=== PATIENT | male | born 1945 | race Caucasian/White ===

== ENCOUNTER 2020-09-07 11:17 | Inpatient (IN) ==
[~2020-09-07 11:17] MED LIST: Famotidine 20 MG/2 ML VIAL IVP ONE
[2020-09-07] MEDS ORDERED: CeFAZolin Syr 2,000MG/20 ML 2,000 MG/20 ML SYRINGE IVPB ONE (12:02)
[2020-09-07] MEDS ORDERED: Ringers Solution, Lactated 1,000 ML IVC SCH (12:15)
[2020-09-07] MEDS ORDERED: Pregabalin 50 MG CAPSULE PO ONE (12:16)
[2020-09-07] MEDS ORDERED: Acetaminophen IV 1,000 MG/100 ML BAG IVPB ONE (12:16)
[2020-09-07] MEDS ORDERED: 0.9 % Sodium Chloride 250 ML IVC SCH (12:45)
[2020-09-07] MEDS ORDERED: *HR* FentaNYL (PF) 100 MCG/2 ML VIAL ONE (13:36)
[2020-09-07] MEDS ORDERED: *HR* Propofol 200 MG/20 ML VIAL IVP ONE (13:36)
[2020-09-07] MEDS ORDERED: Ondansetron 4 MG/2 ML VIAL ONE (13:41)
[2020-09-07] MEDS ORDERED: Lidocaine -MPF 2% 2 ML VIAL ONE (13:41)
[2020-09-07] MEDS ORDERED: Dexamethasone 4 MG/ML VIAL ONE (13:41)
[2020-09-07 15:15] LABS: Eosinophils % 0.1 %; Immature Granulocytes % 1.1 % (0-4); Red Cell Distribution Width 17.9 % (11.5-14.5)
[2020-09-07 15:16] LABS: Hematocrit 30.6 % (37.5-50.1); Hemoglobin 8.5 g/dL (12.9-16.9); Lymphocytes # 0.6 K/mcL (0.6-4.6); Lymphocytes % 8.1 %; Mean Corpuscular HGB Conc 27.8 g/dL (31.6-35.5); Mean Corpuscular Hemoglobin 23.7 pg (28.0-33.3); Mean Corpuscular Volume 85.2 fL (83.0-100.0); Mean Platelet Volume 8.3 fL (9.4-12.4); Monocytes # 0.3 K/mcL (0.0-1.3); Monocytes % 4.4 %; Neutrophils # 6.3 K/mcL (1.6-8.9); Platelet Count 358 K/mcL (140-400); Red Blood Count 3.59 M/mcL (4.19-5.50); Segmented Neutrophils % 86.3 %; White Blood Count 7.3 K/mcL (4.3-11.1)
[2020-09-07 15:21] LABS: INR 1.2; Prothrombin Time 13.3 Seconds (9.4-12.1)
[2020-09-07 15:23] LABS: Activated Partial Thrombo Time 32.6 Seconds (26.0-36.0)
[2020-09-07 15:35] LABS: Albumin 3.2 g/dL (3.5-5.7); Albumin/Globulin Ratio 0.9 (1.1-2.2); Bilirubin,Total 0.5 mg/dL (0.3-1.0); Calcium 8.7 mg/dL (8.6-10.3); Globulin 3.5 g/dL (2.4-3.5); Potassium 3.9 mEq/L (3.5-5.1); Total Protein 6.7 g/dL (6.4-8.9)
[2020-09-07] MEDS ORDERED: Naloxone 0.4 MG/ML INJ IVP PRN (15:51)
[2020-09-07] MEDS ORDERED: Ondansetron ODT 4 MG TAB.RAPDIS SL PRN (15:51)
[2020-09-07] MEDS ORDERED: Perflutren Lipid Microsphere 1.3 ML in 0.9 % Sodium Chloride 8.7 ML IVP PRN (15:54)
[2020-09-07] MEDS ORDERED: Ringers Solution, Lactated 1,000 ML IVC ONE ×2 (15:55→22:39)
[2020-09-07] MEDS ORDERED: Pantoprazole 40 MG VIAL IVP SCH (15:58)
[2020-09-07 16:07] LABS: Anisocytosis 1+ (Not Present); Platelet Estimate Normal (Normal); Poikilocytosis 1+ (Not Present)
[2020-09-07] MEDS: Acetaminophen 325 MG TABLET PO PRN (17:11)
[2020-09-07] MEDS: Metoprolol XL (24 HR) Succ 50 MG TAB.ER.24H PO SCH (17:44)
[2020-09-07] MEDS: Pantoprazole 40 MG in 0.9 % Sodium Chloride Mini Bag 100 ML IVC SCH ×2 (17:44→22:45)
[2020-09-07 17:47] LABS: Bacteria,Urine Few per hpf (None-Few); Bilirubin,Urine Negative (Negative); Blood,Urine Trace (Negative); Clarity,Urine Turbid (Clear); Color,Urine Light-Yellow (Yellow); Glucose,Urine (UA) Normal (Normal); Ketones,Urine Negative (Negative); Leukocyte Esterase,Urine Large (Negative); Nitrite,Urine Negative (Negative); PH,Urine 5.5 pH Units (5.0-8.0); Protein,Urine Trace mg/dL (Neg-Trace); RBC,Urine 0-3 per hpf (0-3); Specific Gravity,Urine 1.017 (1.010-1.025); Urobilinogen,Urine Normal (Normal); WBC,Urine TNTC per hpf (0-3)
[2020-09-07 18:13] LABS: Thyroid Stimulating Hormone 5.336 mcIU/mL (0.340-5.600)
[2020-09-07] MEDS: cefTRIAXone 1,000 MG in Water for inj. (sterile) 10 ML IVP SCH (18:33)
[2020-09-07 19:31] LABS: Adenovirus Not Detected (Not Detect); Coronavirus 229E Not Detected (Not Detect); Coronavirus HKU1 Not Detected (Not Detect); Coronavirus NL63 Not Detected (Not Detect)
[2020-09-07 19:32] LABS: Bordetella Pertussis Not Detected (Not Detect); Chlamydophila pneumoniae Not Detected (Not Detect); Coronavirus OC43 Not Detected (Not Detect); Human Metapneumovirus Not Detected (Not Detect); Human Rhinovirus/Enterovirus Not Detected (Not Detect); Influenza A Subtype 2009 H1 Not Detected (Not Detect); Influenza B Not Detected (Not Detect); Mycoplasma pneumoniae Not Detected (Not Detect); Parainfluenza Virus 1 Not Detected (Not Detect); Parainfluenza Virus 2 Not Detected (Not Detect); Parainfluenza Virus 3 Not Detected (Not Detect); Parainfluenza Virus 4 Not Detected (Not Detect); Respiratory Syncytial Virus Not Detected (Not Detect); SARS-CoV-2 Not Detected (Not Detect)
[2020-09-08] MEDS: Pantoprazole 40 MG in 0.9 % Sodium Chloride Mini Bag 100 ML IVC SCH ×4 (04:02→18:15)
[2020-09-08 05:14] LABS: Hematocrit 24.2 % (37.5-50.1); Hemoglobin 7.1 g/dL (12.9-16.9); Mean Corpuscular HGB Conc 29.3 g/dL (31.6-35.5); Mean Corpuscular Hemoglobin 24.6 pg (28.0-33.3); Mean Corpuscular Volume 83.7 fL (83.0-100.0); Mean Platelet Volume 7.8 fL (9.4-12.4); Platelet Count 225 K/mcL (140-400); Red Blood Count 2.89 M/mcL (4.19-5.50); Red Cell Distribution Width 17.6 % (11.5-14.5); White Blood Count 3.9 K/mcL (4.3-11.1)
[2020-09-08 05:33] LABS: Potassium 3.9 mEq/L (3.5-5.1)
[2020-09-08] MEDS: cefTRIAXone 1,000 MG in Water for inj. (sterile) 10 ML IVP SCH (08:18)
[2020-09-08] MEDS: Metoprolol XL (24 HR) Succ 50 MG TAB.ER.24H PO SCH (08:18)
[2020-09-08] MEDS ORDERED: Lidocaine -MPF 2% 2 ML VIAL ONE (11:08)
[2020-09-08] MEDS ORDERED: *HR* PHENYLEPHRINE 1,000 MCG/10 ML SYRINGE IVP ONE (11:11)
[2020-09-08 12:32] LABS: Hematocrit 24.8 % (37.5-50.1)
[2020-09-08] MEDS ORDERED: 0.9 % Sodium Chloride 1,000 ML ONE (14:38)
[2020-09-08 20:22] LABS: Hematocrit 25.9 % (37.5-50.1); Hemoglobin 7.6 g/dL (12.9-16.9)
[2020-09-08] MEDS ORDERED: 0.9 % Sodium Chloride 250 ML ONE (22:27)
[2020-09-09] MEDS: Pantoprazole 40 MG in 0.9 % Sodium Chloride Mini Bag 100 ML IVC SCH ×6 (01:50→23:32)
[2020-09-09] MEDS: Metoprolol XL (24 HR) Succ 50 MG TAB.ER.24H PO SCH (07:43)
[2020-09-09] MEDS: cefTRIAXone 1,000 MG in Water for inj. (sterile) 10 ML IVP SCH (07:43)
[2020-09-09] MEDS: Acetaminophen 325 MG TABLET PO PRN ×2 (07:49→14:39)
[2020-09-09 08:01] LABS: Basophils % 0.3 %; Eosinophils % 0.3 %; Immature Granulocytes % 1.4 % (0-4); Mean Corpuscular Volume 85.1 fL (83.0-100.0)
[2020-09-09 08:02] LABS: Hematocrit 32.1 % (37.5-50.1); Hemoglobin 9.9 g/dL (12.9-16.9); Lymphocytes # 0.3 K/mcL (0.6-4.6); Lymphocytes % 7.3 %; Mean Corpuscular HGB Conc 30.8 g/dL (31.6-35.5); Mean Corpuscular Hemoglobin 26.3 pg (28.0-33.3); Mean Platelet Volume 8.6 fL (9.4-12.4); Monocytes # 0.2 K/mcL (0.0-1.3); Monocytes % 6.7 %; Platelet Count 214 K/mcL (140-400); Red Blood Count 3.77 M/mcL (4.19-5.50); Red Cell Distribution Width 17.7 % (11.5-14.5); White Blood Count 3.6 K/mcL (4.3-11.1)
[2020-09-09 08:23] LABS: Calcium 8.4 mg/dL (8.6-10.3); Magnesium 1.8 mg/dL (1.6-2.6); Potassium 4.1 mEq/L (3.5-5.1)
[2020-09-09 08:27] LABS: Platelet Estimate Normal (Normal)
[2020-09-09 08:28] LABS: Anisocytosis 1+ (Not Present); Hypochromasia Present (Not Present); Poikilocytosis 1+ (Not Present)
[2020-09-10 02:12] LABS: Basophils % 0.2 %; Eosinophils % 0.2 %; Hematocrit 29.8 % (37.5-50.1); Immature Granulocytes % 1.2 % (0-4); Lymphocytes # 0.4 K/mcL (0.6-4.6); Lymphocytes % 10.7 %; Mean Corpuscular HGB Conc 30.2 g/dL (31.6-35.5); Mean Corpuscular Hemoglobin 25.4 pg (28.0-33.3); Mean Corpuscular Volume 83.9 fL (83.0-100.0); Monocytes # 0.4 K/mcL (0.0-1.3); Monocytes % 9.7 %; Neutrophils # 3.2 K/mcL (1.6-8.9); Platelet Count 182 K/mcL (140-400); Red Blood Count 3.55 M/mcL (4.19-5.50); Red Cell Distribution Width 17.6 % (11.5-14.5); White Blood Count 4.1 K/mcL (4.3-11.1)
[2020-09-10 02:30] LABS: Potassium 4.1 mEq/L (3.5-5.1)
[2020-09-10] MEDS ORDERED: Isovue-370 500 ML BOTTLE IVP ONE ×2 (06:50→17:11)
[2020-09-10] MEDS: Pantoprazole 40 MG in 0.9 % Sodium Chloride Mini Bag 100 ML IVC SCH ×5 (07:10→23:37)
[2020-09-10] MEDS: 0.9 % Sodium Chloride 1,000 ML IVC SCH ×2 (07:11→15:15)
[2020-09-10] MEDS: Metoprolol XL (24 HR) Succ 50 MG TAB.ER.24H PO SCH (08:29)
[2020-09-10] MEDS ORDERED: Isovue-370 500 ML BOTTLE PO ONE (09:04)
[2020-09-10] MEDS: Piperacillin/Tazobactam 3.375 GM in 0.9 % Sodium Chloride Mini Bag 100 ML IVPB SCH ×2 (15:14→23:36)
[2020-09-11] MEDS: Pantoprazole 40 MG in 0.9 % Sodium Chloride Mini Bag 100 ML IVC SCH ×2 (05:45→12:19)
[2020-09-11] MEDS: 0.9 % Sodium Chloride 1,000 ML IVC SCH (05:47)
[2020-09-11 06:52] LABS: Basophils % 0.3 %; Eosinophils % 0.6 %; Hematocrit 29.6 % (37.5-50.1); Hemoglobin 8.8 g/dL (12.9-16.9); Immature Granulocytes % 1.4 % (0-4); Lymphocytes # 0.5 K/mcL (0.6-4.6); Lymphocytes % 15.2 %; Mean Corpuscular HGB Conc 29.7 g/dL (31.6-35.5); Mean Corpuscular Volume 84.1 fL (83.0-100.0); Mean Platelet Volume 8.3 fL (9.4-12.4); Monocytes # 0.6 K/mcL (0.0-1.3); Monocytes % 18.1 %; Neutrophils # 2.3 K/mcL (1.6-8.9); Platelet Count 155 K/mcL (140-400); Red Blood Count 3.52 M/mcL (4.19-5.50); Red Cell Distribution Width 17.5 % (11.5-14.5); Segmented Neutrophils % 64.4 %; White Blood Count 3.5 K/mcL (4.3-11.1)
[2020-09-11 07:06] LABS: Calcium 7.6 mg/dL (8.6-10.3); Potassium 3.8 mEq/L (3.5-5.1)
[2020-09-11 07:13] LABS: Platelet Estimate Slight Decrease (Normal)
[2020-09-11] MEDS: Metoprolol XL (24 HR) Succ 50 MG TAB.ER.24H PO SCH (07:49)
[2020-09-11] MEDS: Piperacillin/Tazobactam 3.375 GM in 0.9 % Sodium Chloride Mini Bag 100 ML IVPB SCH ×2 (07:49→15:06)
[2020-09-11 15:45] VITALS: BP 125/74
[2020-09-11] MEDS: Acetaminophen 325 MG TABLET PO PRN (16:29)
== END 2020-09-11 18:12 | disposition short-term general hospital (02) | DRG 689 ==
LOC: SAMDAY 11:17 → SUATTDRO 15:33 → 2ANU 15:33 → INTOOBSV 15:33
PROVIDERS: ADMIT Student in an Organized Health Care Education/Training Program; ATTEND General Practice
PROC: ENDOCBX (2020-09-08 08:50)
PROC: ENDOEBX (2020-09-08 08:50)